=== PATIENT | male | born 1990 | race Two or more races ===

== ENCOUNTER 2023-05-10 22:28 | Emergency (ER) | payer MEDICAID, OTHER ==
[~2023-05-10] VITALS: Ht 188 cm; Wt 118.7 kg
[2023-05-10 22:38] VITALS: O2SAT 96
[2023-05-11] MEDS ORDERED: DexAMETHasone SOD PHOS 10MG/1ML VIAL INJ IM ONE (01:45)
[2023-05-11] MEDS ORDERED: MORPHINE SULFATE INJ 2 MG/ml SYRG IM ONE (01:45)
[2023-05-11] MEDS ORDERED: CYCL-611 PO (02:38)
[2023-05-11] MEDS ORDERED: HYDR-4902 PO (02:38)
[2023-05-11 02:45] VITALS: BP 101/65; PULSE 103; RESP 12
== END 2023-05-11 03:01 | disposition home or self-care (01) ==
LOC: ER 22:28
DX: S33.5XXA Sprain of ligaments of lumbar spine, initial encounter (principal); M54.40 Lumbago with sciatica, unspecified side; X58.XXXA Exposure to other specified factors, initial encounter; Y93.89 Activity, other specified; Y92.89 Other specified places as the place of occurrence of the external cause; Y99.8 Other external cause status
CPT/HCPCS: 72100; 96372; 99284; J1100; J2270